=== PATIENT | female | born 1990 | race Caucasian/White ===

== ENCOUNTER → 2020-10-03 | Outpatient (CLI) | payer OTHER ==
--- NOTE | 2020-10-03 20:54 | RAD ---
Three-view left wrist dated 10/03/2020. No comparison available. Clinical data indication: Rest pain. FINDINGS: 3 views left wrist show normal bony alignment. No displaced fracture. No acute osseous or articular a bnormality. No periostitis or bone destruction. IMPRESSION: No acute findings. Electronically signed by: Tru Leblanc MD (10/03/2020 8:52 PM) [facility]
== END ==
LOC: DXRAD 15:23
PROVIDERS: ATTEND Registered Nurse
DX: M25.532 Pain in left wrist (principal)
CPT/HCPCS: 73110

== ENCOUNTER 2021-08-22 12:10 | Emergency (ER) | payer SELFPAY ==
[~2021-08-22] VITALS: Ht 157.5 cm; Wt 76.0 kg
[2021-08-22] MEDS ORDERED: IV NORMAL SALINE 1,000ML 1,000 ML IV ONE (13:00)
--- NOTE | 2021-08-22 13:18 | RAD ---
EXAMINATION: CT HEAD/BRAIN WO CLINICAL HISTORY: Headache. TECHNIQUE: Serial axial images without IV contrast were obtained from the vertex to the foramen magnu m. CT Dose Reduction Employed: One or more of the following individualized dose reduction techniques wer e utilized for this examination: 1. Automated exposure control 2. Adjustment of the mA and/or kV ac cording to patient size 3. Use of iterative reconstruction technique. COMPARISON: None FINDINGS: Acute Change: No evidence of acute intracranial abnormality. Hemorrhage: No evidence of acute intracranial hemorrhage. Mass Lesion/Mass Effect: No evidence of intracranial mass or extraaxial fluid collection. No signific ant mass effect. Parenchyma: Parenchyma within normal limits for age. Ventricles: Ventricles within normal limits for age. Paranasal Sinuses and Skull Base: Mild secretions in the ethmoid air cells. Visualized skull base and soft tissues unremarkable. IMPRESSION: No evidence of acute intracranial abnormality. Electronically signed by: Jayce Patel DO (08/22/2021 1:15 PM) [facility]
--- NOTE | 2021-08-22 13:24 | PHYS DOC ---
Past History Additional Past Medical Histor: PTSD, AVNIT, Past Surgical History: Cholecystectomy, , Tubal ligation, Other Additional Past Surgical Histo: GALLSOTNE REMOVAL General Adult EDM: Chief Complaint: RAPID HEART RATE HPI: HPI: Patient is a 31-year-old female coming in for racing heart rate and palpitations. Patient states she was working when it started. Patient denies any recent stressors heavy lifting. Patient states she has been having adequate p.o. intake has been decreasing her caffeine has not had any caffeine for the past couple days. 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 Says started when she was 15 and had been evaluated for it. Patient states she felt weak after the tachycardia started denies any loss of consciousness. Patient states that she felt well prior to event Review of Systems: Review of Systems: All other systems within normal limits except for as noted in the HPI Current Medications: Current Meds: Current Medications Medications (Trade) Dose Ordered Sig/Nikkie Start Time Stop Time Status Last Admin Dose Admin Sodium Chloride 1,000 ml @ 1,000 mls/hr 1X ONCE 08/22/21 13:00 08/22/21 13:59 Allergies: Allergies: Allergies Coded Allergies Type Severity Reaction Last Updated Verified Cephalosporins Allergy Unknown 08/22/21 Yes diazepam Allergy Unknown 08/22/21 Yes erythromycin base Allergy Unknown 08/22/21 Yes ibuprofen Allergy Unknown 08/22/21 Yes Physical Exam: PE: Constitutional: Well developed, well nourished, no acute distress, non-toxic appearance. [] HENT: Normocephalic, atraumatic, bilateral external ears normal, nose normal. [] Eyes: PERRLA, conjunctiva normal, no discharge. [] Neck: No rigidity, supple, no stridor. [] Cardiovascular: Regular rate and rhythm, brisk cap refill [] Lungs & Thorax: Non labored symmetric respirations, no tachypnea or respiratory distress [] Abdomen: Soft, nondistended. Skin: Warm, dry, no erythema, no rash. [] Back: Unremarkable Extremities: No deformities, range of motion grossly intact, no lower extremity edema [] Neurologic: Alert and oriented X 3, no focal deficits noted. [] Psychologic: Affect normal, judgement normal, mood normal. [] Current Patient Data: Vital Signs: Vital Signs Date Time Temp Pulse Resp B/P (MAP) Pulse Ox O2 Delivery O2 Flow Rate FiO2 08/22/21 12:15 97.9 92 20 134/94 (107) 100 Room Air EKG: EKG: [] Radiology/Procedures: Radiology/Procedures: [address] [address] IMAGING REPORT Signed PATIENT: HAN RANDLE ACCOUNT: [id number] : 1990 LOCATION: ER AGE: 31 SEX: F EXAM STATUS: REG ER ORD. PHYSICIAN: NASIM PARIKH MD REASON: headache PROCEDURE: CT HEAD WO CONTRAST EXAMINATION: CT HEAD/BRAIN WO CLINICAL HISTORY: Headache. TECHNIQUE: Serial axial images without IV contrast were obtained from the vertex to the foramen magnum. CT Dose Reduction Employed: One or more of the following individualized dose reduction techniques were utilized for this examination: 1. Automated exposure control 2. Adjustment of the mA and/or kV according to patient size 3. Use of iterative reconstruction technique. COMPARISON: None FINDINGS: Acute Change: No evidence of acute intracranial abnormality. Hemorrhage: No evidence of acute intracranial hemorrhage. Mass Lesion/Mass Effect: No evidence of intracranial mass or extraaxial fluid c ollection. No significant mass effect. Parenchyma: Parenchyma within normal limits for age. Ventricles: Ventricles within normal limits for age. Paranasal Sinuses and Skull Base: Mild secretions in the ethmoid air cells. Visualized skull base and soft tissues unremarkable. IMPRESSION: No evidence of acute intracranial abnormality. Electronically signed by: Jayce Pritchard DO (08/22/2021 1:15 PM) [facility] DICTATED AND SIGNED BY: JAYCE PRITCHARD DO DATE: 08/22/21 1312 CC: NASIM PARIKH MD; SHEELA CANTRELL MD ~ [] Heart Score: C/O Chest Pain: Yes HEART Score for Chest Pain: HEART Score for Chest Pain Response (Comments) Value History Slighlty/Non-Suspicious 0 ECG Normal 0 Age < 45 0 Risk Factors No Risk Factors 0 Troponin < Normal Limit 0 Total 0 Risk Factors: Risk Factors: DM, Current or recent (<one month) smoker, HTN, HLP, family history of CAD, obesity. Risk Scores: Score 0 - 3: 2.5% MACE over next 6 weeks - Discharge Home Score 4 - 6: 20.3% MACE over next 6 weeks - Admit for Clinical Observation Score 7 - 10: 72.7% MACE over next 6 weeks - Early Invasive Strategies Course & Med Decision Making: Course & Med Decision Making Pertinent Labs and Imaging studies reviewed. (See chart for details) [] Dragon Disclaimer: Dragon Disclaimer: This electronic medical record was generated, in whole or in part, using a voice recognition dictation system. Departure Departure: Impression: Primary Impression: AVNRT (AV elias re-entry tachycardia) Disposition: HOME / SELF CARE / HOMELESS Condition: STABLE Referrals: SHEELA CANTRELL MD (PCP) Patient Instructions: Nonspecific Tachycardia Additional Instructions: Call to schedule follow-up appointment with cardiology [facility] [address] [place] [id number] NASIM PARIKH MD August 22, 2021 13:24
[2021-08-22 13:35] LABS: BASO % 0 % (0-3); EOS # 0.4 x10^3/uL (0.0-0.7); EOS % 5 % (0-3); HEMATOCRIT 38.7 % (36.0-47.0); HEMOGLOBIN 12.7 g/dL (12.0-15.5); LYMPH # 2.1 x10^3/uL (1.0-4.8); LYMPH % 27 % (24-48); MEAN CORPUSCULAR HEMOGLOBIN 27 pg (25-35); MEAN CORPUSCULAR HGB CONC 33 g/dL (31-37); MEAN CORPUSCULAR VOLUME 83 fL (79-100); MONO # 0.6 x10^3/uL (0.0-1.1); MONO % 8 % (0-9); NEUT # 4.5 x10^3uL (1.8-7.7); NEUT % 59 % (31-73); PLATELET COUNT 283 x10^3/uL (140-400); RED BLOOD COUNT 4.68 x10^6/uL (3.50-5.40); RED CELL DISTRIBUTION WIDTH 14.3 % (11.5-14.5); WHITE BLOOD COUNT 7.7 x10^3/uL (4.0-11.0)
[2021-08-22 13:49] LABS: CREATININE 0.8 mg/dL (0.6-1.0); GFR 83.1; POTASSIUM 3.5 mmol/L (3.5-5.1)
[2021-08-22 14:01] LABS: ALBUMIN 3.3 g/dL (3.4-5.0); ALBUMIN/GLOBULIN RATIO 0.9 (1.0-1.7); MAGNESIUM 2.1 mg/dL (1.8-2.4); PHOSPHORUS 2.2 mg/dL (2.6-4.7); TOTAL BILIRUBIN 0.2 mg/dL (0.2-1.0)
[2021-08-22 14:11] LABS: BARBITURATES NEG (NEG); BENZODIAZEPINES NEG (NEG); CANNABINOIDS NEG (NEG); COCAINE NEG (NEG); METHADONE NEG (NEG); OPIATES NEG (NEG); PHENCYCLIDINE NEG (NEG)
[2021-08-22 14:13] LABS: AMPHETAMINE/METHAMPHETAMINE NEG (NEG)
[2021-08-22 14:18] LABS: BACTERIA,URINE 0 /HPF (0-FEW); CLARITY,URINE CLEAR; COLOR,URINE YELLOW; GLUCOSE,URINE NEG (NEG); NITRITE,URINE NEG (NEG); RBC,URINE 0 /HPF (0-2); SQUAMOUS EPITHELIAL CELL,UR OCC /LPF; UROBILINOGEN,URINE 0.2 mg/dL (0.2 mg/dL); WBC,URINE 0 /HPF (0-4)
[2021-08-22] MEDS ORDERED: KETOROLAC 15 MG/ML VIAL. IVP ONE (15:00)
[2021-08-22] MEDS ORDERED: ACETAMINOPHEN 325 MG TABLET PO ONE (15:45)
[2021-08-22 17:48] VITALS: BP 116/73
--- NOTE | 2021-08-22 23:30 | EKG ---
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
== END 2021-08-22 18:05 | disposition home or self-care (01) ==
LOC: ER 12:10
DX: I47.1 Supraventricular tachycardia (principal); Z88.1 Allergy status to other antibiotic agents; Z88.6 Allergy status to analgesic agent; Z88.8 Allergy status to other drugs, medicaments and biological substances
CPT/HCPCS: 36415; 70450; 80053; 80307; 81001; 83735; 83880; 84100; 84484; 85025; 93005; 96360; 99285; J7030